=== PATIENT | female | born 1990 | race Asian ===

== ENCOUNTER 2019-12-11 07:22 | Emergency (ER) | payer OTHER ==
[~2019-12-11] VITALS: Ht 149.9 cm; Wt 63.5 kg
[~2019-12-11 07:22] MED LIST: Prednisone20 MG PO; ZOVIRAX800 MG PO
[2019-12-11] MEDS ORDERED: OXYC5 PO (08:12)
== END 2019-12-11 08:18 | disposition home or self-care (01) ==
LOC: ER 07:22
DX: G51.0 Bell's palsy (principal)
CPT/HCPCS: 99282

== ENCOUNTER → 2024-07-06 | Outpatient (CLI) | payer BC ==
[~2024-07-06] MED LIST changes: +OXYC5 PO
[2024-07-10 19:30] LABS: HPV HIGH RISK BY TMA Not Detected; HPV SOURCE Cervical
== END | disposition home or self-care (01) ==
LOC: LAB SHORT 11:35 → LAB 11:35
PROVIDERS: Family Medicine
DX: Z12.4 Encounter for screening for malignant neoplasm of cervix (principal)
CPT/HCPCS: 87624; G0123